=== PATIENT | female | born 1980 | race Two or more races ===

== ENCOUNTER 2018-12-26 13:25 | Observation (INO) | payer MEDICAID ==
[~2018-12-26 13:25] MED LIST: CIPR-217 PO; HYDR-4833 PO; METR500T14 PO; PREN-96 PO
== END 2018-12-26 16:05 | disposition home or self-care (01) | DRG 566 ==
LOC: LDRP 13:25
PROVIDERS: ADMIT Specialist; ATTEND Specialist
DX: O26.893 Other specified pregnancy related conditions, third trimester (principal); O24.419 Gestational diabetes mellitus in pregnancy, unspecified control; R10.2 Pelvic and perineal pain; O99.213 Obesity complicating pregnancy, third trimester; Z3A.34 34 weeks gestation of pregnancy
CPT/HCPCS: 59025; 76815; 81002; 82962; G0378